=== PATIENT | male | born 1960 | race Caucasian/White ===

== ENCOUNTER 2021-03-13 12:00 | Emergency (ER) | payer BC, SELFPAY ==
--- NOTE | ~2021-03-13 | CT_ITS ---
EXAMINATION: CT abdomen pelvis w con EXAM DATE: 03/13/2021 13:55 INDICATION: Epigastric pain. Nausea, vomiting. Chills. TECHNIQUE: Spiral CT of the abdomen and pelvis was performed following intravenous injection of 100 m L Omnipaque 350. Axial, coronal and sagittal images of the abdomen and pelvis were reviewed. The do se-length product (DLP) for this examination was 486.55 mGy-cm. The exposure was tailored according to patient size (auto mA exposure control), and iterative reconstruction (ASIR) was used as additiona l dose reduction technique. There is no prior study for comparison. FINDINGS: The liver, spleen, adrenal glands and pancreas are unremarkable. Gallbladder is unremarkab le. No biliary obstruction. Portal and splenic veins are patent. Kidneys enhance symmetrically. T here is no hydronephrosis. The prostate is unremarkable. The bladder is unremarkable. There is no retroperitoneal or pelvic lymphadenopathy. Small left inguinal fat-containing hernia. The appendix is normal. There is mild scattered colonic diverticulosis. There is no adjacent inflamm atory change to suggest diverticulitis. The stomach and small bowel are unremarkable. There is expec annmarie amount of colonic stool. No free intraperitoneal gas. The heart is normal in size. There are no pericardial or pleural effusions. Right lower lobe calcified granuloma. There are no osteoblast ic or osteolytic lesions identified. Advanced lower lumbar facet arthropathy. IMPRESSION: 1. No acute intra-abdominal findings. Reviewed, dictated and finalized at location B. [employer]
[2021-03-13 12:07] VITALS: BP 146/111; PULSE 70; RESP 16; TEMP 36.3; O2SAT 100
--- NOTE | 2021-03-13 12:08 | ECG_ITS ---
Measurements Intervals [place] Rate: 63 P: 57 OK: 156 QRS: 35 QRSD: 113 T: 66 QT: 406 QTc: 419 Interpretive Statements SINUS RHYTHM INTRAVENTRICULAR CONDUCTION DELAY DELAYED PRECORDIAL R/S TRANSITION BASELINE ARTIFACT- I, II, III, V4-V6 BORDERLINE ECG Electronically Signed On 03-13-2021 12:16:01 DIRECTOR OF [employer] by Maulik Frost D.O.
[2021-03-13 12:27] VITALS: BP 182/98; PULSE 76; RESP 26; O2SAT 100
[2021-03-13 12:36] LABS: Basophils Percent Auto 0.4 % (0.2-1.2); Eosinophils Percent Auto 0.2 % (0-4.4); Hematocrit 48.9 % (42.0-52.0); Hemoglobin 16.8 g/dL (14.0-18.0); Immature Granulocyte Absolute 0.04 K/mm3 (0.00-0.031); Immature Granulocyte Percent A 0.4 % (0-0.5); Lymphocytes Absolute Auto 2.44 K/mm3 (0.9-3.2); Mean Corpuscular HGB Conc 34.4 g/dl (32-36); Mean Corpuscular Hemoglobin 30.9 pg (26-34); Mean Corpuscular Volume 89.9 fl (80-100); Mean Platelet Volume 9.8 fl (7.4-10.4); Monocytes Absolute Auto 0.7 K/mm3 (0.1-0.6); Monocytes Percent Auto 7.9 % (2.6-8.5); Neutrophils Absolute Auto 6.1 K/mm3 (1.3-6.7); Neutrophils Percent Auto 65.1 % (45.5-73.1); Platelet Count Result 326 k/mm3 (150-375); Red Blood Count 5.44 M/mm3 (4.6-6.20); Red Cell Distribution Width 13.5 % (11.5-14.5); White Blood Count 9.4 K/mm3 (4.5-10.0)
[2021-03-13 12:46] LABS: Alanine Aminotransferase 18 U/L (4-50); Albumin Level 4.8 g/dL (3.5-5.1); Alkaline Phosphatase 66 U/L (38-126); Anion Gap 13 mmol/L (8-16); Aspartate Amino Transferase 24 U/L (17-59); Bilirubin,Total 2.7 mg/dL (0.2-1.3); Blood Urea Nitrogen 9 mg/dL (9-20); Calcium 9.4 mg/dL (8.4-10.2); Carbon Dioxide 24 mmol/L (22-30); Chloride 101 mmol/L (98-107); Estimated Glomerular Filt Rate > 60; Glucose 173 mg/dL (65-110); Lipase 137 U/L (23-300); Potassium 3.8 mmol/L (3.4-5.0); Sodium 138 mmol/L (137-145)
--- NOTE | 2021-03-13 13:38 | ED.ABDPAIN ---
HPI - Abdominal Pain General Chief Complaint: Abdominal Pain Stated Complaint: abd pain, nausea Time Seen by Provider: 03/13/21 13:10 Source: patient Mode of arrival: ambulatory Limitations: no limitations History of Present Illness HPI narrative: 60-year-old male with a history of hypertension and CHF presents to the ED with epigastric abdominal pain, nausea, and vomiting. He states symptoms began upon waking this AM. He initially experienced nonbloody emesis however has primarily been dry heaving since that time. He points to the lower chest region as well as the epigastrium when localizing his pain. No recent history of fever, chills, hematemesis, diarrhea, constipation, melena, hematochezia, dysuria, or hematuria. No abdominal surgical history. He has not taken any medication for his symptoms. He occasionally drinks alcohol and rarely uses NSAIDs. Related Data Allergies Allergy/AdvReac Type Severity Reaction Status Date / Time No Known Allergies Allergy Mild Verified 01/20/19 06:00 Review of Systems Review of Systems: CONSTITUTIONAL: Denies fever, chills, or sweats. EYES: Denies visual changes, redness, or discharge. ENT: Denies rhinorrhea, congestion, sore throat, or otalgia. CARDIOVASCULAR: + chest pain. RESPIRATORY: Denies cough or dyspnea. GASTROINTESTINAL: Epigastric pain, nausea, vomiting GENITOURINARY: Denies dysuria or hematuria. SKIN: Denies rash or itching. MUSCULOSKELETAL: Denies back pain, joint pain, or myalgia. NEUROLOGIC: Denies headache, numbness, dizziness, or weakness. PSYCHIATRIC: Denies anxiety or depression. All systems reviewed & are unremarkable except as noted in HPI and below PMFSH Past Medical History Medical History Hypertension Surgical History Surgical History Cervical vertebral fusion Social History Social History Gender identity (if verbalized by the patient): Male Exam Narrative: GENERAL: Uncomfortable appearing; well-nourished, and in no acute distress. HEAD: Normocephalic, atraumatic. EYES: PERRLA and EOMI. ENT: Nares clear, no rhinorrhea or epistaxis. Mucous membranes moist. Oropharynx without tonsillar hypertrophy exudate or other lesions. Bilateral TMs pearly gordon nonbulging NECK: Supple. No adenopathy or masses. No carotid bruits or JVD CHEST: Clear to auscultation. No respiratory distress. No wheezes rales or rhonchi HEART: Regular rate and rhythm. No murmur heard. Normal peripheral pulses. ABDOMEN: Mild epigastric tenderness palpation; no guarding, rigidity, or rebound tenderness. Negative Macias sign. EXTREMITIES: Normal range of motion. No edema. SKIN: Warm, dry, no rash. NEURO: No focal deficits. Alert and oriented x3. PSYCH: Normal mood and affect. Course Course Emergency Course: Patient presents with epigastric abdominal pain, nausea, and vomiting. Work-up in ED is largely unremarkable. Unclear etiology. Perhaps some degree of esophagitis/gastritis. Functional abdominal pain is another consideration. Each time I entered patient's room to reevaluate him he appears to be resting comfortably however then states his pain and nausea are not improved. I do not feel there is indication for admission at this time. Patient would benefit from outpatient gastroenterology referral for possible EGD. Will Rx antiemetics and PPI. He is to return to the ED if symptoms worsen. Vital Signs Vital signs: Vital Signs Temperature 97.4 F L 03/13/21 12:07 Pulse Rate 70 03/13/21 12:07 Respiratory Rate 16 03/13/21 12:07 Blood Pressure 146/111 H 03/13/21 12:07 Pulse Oximetry 100 03/13/21 12:07 Temperature 97.4 F L 03/13/21 12:07 Pulse Rate 76 03/13/21 12:27 Respiratory Rate 26 H 03/13/21 12:27 Blood Pressure 182/98 H 03/13/21 12:27 Pulse Oximetry 100 03/13/21 12:27 [facility] -
[2021-03-13] MEDS: ONDANSETRON INJ 4 MG/2 ML VIAL IV PUSH (13:59)
[2021-03-13] MEDS: MORPHINE SULFATE (*CRX) 4 MG/ML INJ IV PUSH (14:00)
[2021-03-13 14:02] LABS: Troponin I < 0.012 ng/mL (0.000-0.034)
[2021-03-13 14:49] LABS: Add Urine Microscopic? YES; Appearance Urine Clear (Clear); Bilirubin Urine Negative (Negative); Blood Urine Negative (Negative); Color Urine Yellow (Yellow); Glucose Urine UA 1+ mg/dL (Negative); Ketones Urine 2+ mg/dL (Negative); Leukocyte Esterase Ur Negative LEU/UL (Negative); Mucus Urine Moderate /lpf; Nitrate Urine Negative (Negative); Protein Urine Negative (Negative); RBC Urine 0-2 /hpf (0-2); Squamous Epithelial Cell Urine Occasional /hpf (Few); Urobilinogen Urine Negative mg/dL (<2.0); WBC Urine 0-3 /hpf
[2021-03-13] MEDS: diphenhydrAMINE HCl INJ 50 MG/ML VIAL 25 MG IV PUSH (14:53)
[2021-03-13 14:54] LABS: Specific Grav Ur 1.044 (1.001-1.035)
[2021-03-13] MEDS: HALOPERIDOL LACTATE 5 MG/ML VIAL 2.5 MG IV PUSH (14:55)
[2021-03-13] MEDS: fentaNYL CITRATE INJ (*CRX) 100 MCG/2 ML VIAL 75 MCG IV PUSH (16:01)
[2021-03-13] MEDS: FAMOTIDINE 20 MG/2 ML VIAL IV PUSH (16:03)
[2021-03-13 16:06] VITALS: BP 156/104; PULSE 74; RESP 20; O2SAT 98
== END 2021-03-13 20:57 | disposition home or self-care (01) ==
PROVIDERS: Emergency Medicine; Physician Assistant; Emergency Provider Emergency Medicine; PCP Family Medicine
DX: R10.13 Epigastric pain (principal); R11.2 Nausea with vomiting, unspecified; I50.9 Heart failure, unspecified; I11.0 Hypertensive heart disease with heart failure; I45.9 Conduction disorder, unspecified
CPT/HCPCS: 36415; 74177; 80053; 81001; 83690; 84484; 85025; 93005; 96374; 96375; 99284; J1200; J1630; J2270; J2405; J3010; Q9967

== ENCOUNTER 2021-06-22 07:47 | Emergency (ER) | payer BC, SELFPAY ==
--- NOTE | ~2021-06-22 | CT_ITS ---
EXAMINATION: CT abdomen pelvis w con DATE: 06/22/2021 10:05 INDICATION: Epigastric abdominal pain. Nausea and vomiting. TECHNIQUE: Computed tomography (CT) of the abdomen and pelvis was performed with 100 mL Omnipaque 350 intravenous contrast. Automated exposure control and iterative reconstruction technique were employe d. The dose-length product was 318.83 mGy-cm. COMPARISON: CT abdomen and pelvis 03/13/2021 FINDINGS: The visualized portions of the lung bases demonstrate mild atelectasis. No pleural effusion . The heart size is normal. There are coronary artery calcifications. There is a small pericardial ef fusion. The liver, gallbladder, spleen, pancreas, adrenal glands, and left kidney are normal. There i s a 14 mm cyst in right kidney. There is a left inguinal hernia containing fat. There is diverticulos is of the colon without evidence of diverticulitis. There are no dilated loops of bowel. There is a t ransient small bowel intussusception. The appendix is normal. There is an umbilical hernia containing fat. There are no pathologically enlarged lymph nodes. There is no free intraperitoneal fluid. There is mild thoracic spondylosis and moderate lumbar spondylosis. IMPRESSION: 1. Stable small pericardial effusion. 2. Umbilical hernia and left inguinal hernia containing fat. Reviewed, dictated and finalized at location B.
[2021-06-22 07:53] VITALS: BP 132/93; PULSE 98; RESP 20; TEMP 36.8; O2SAT 100
[2021-06-22 08:36] VITALS: BP 124/89; PULSE 83; RESP 20; O2SAT 100
[2021-06-22 08:51] LABS: Basophils Percent Auto 0.3 % (0.2-1.2); Eosinophils Percent Auto 0.1 % (0-4.4); Hematocrit 54.4 % (42.0-52.0); Hemoglobin 18.6 g/dL (14.0-18.0); Immature Granulocyte Absolute 0.09 K/mm3 (0.00-0.031); Immature Granulocyte Percent A 0.6 % (0-0.5); Lymphocytes Absolute Auto 4.23 K/mm3 (0.9-3.2); Lymphocytes Percent Auto 28.8 % (18.3-44.2); Mean Corpuscular HGB Conc 34.2 g/dl (32-36); Mean Corpuscular Hemoglobin 30.9 pg (26-34); Mean Corpuscular Volume 90.5 fl (80-100); Mean Platelet Volume 10.3 fl (7.4-10.4); Monocytes Absolute Auto 1.3 K/mm3 (0.1-0.6); Monocytes Percent Auto 9.1 % (2.6-8.5); Neutrophils Percent Auto 61.1 % (45.5-73.1); Platelet Count Result 415 k/mm3 (150-375); Red Blood Count 6.01 M/mm3 (4.6-6.20); Red Cell Distribution Width 13.6 % (11.5-14.5); White Blood Count 14.7 K/mm3 (4.5-10.0)
[2021-06-22 09:00] LABS: Alanine Aminotransferase 18 U/L (4-50); Albumin Level 4.7 g/dL (3.5-5.1); Alkaline Phosphatase 53 U/L (38-126); Anion Gap 16 mmol/L (8-16); Aspartate Amino Transferase 38 U/L (17-59); Bilirubin,Total 3.7 mg/dL (0.2-1.3); Blood Urea Nitrogen 30 mg/dL (9-20); Calcium 9.1 mg/dL (8.4-10.2); Carbon Dioxide 20 mmol/L (22-30); Chloride 94 mmol/L (98-107); Estimated CRCL calculation 66 ml/min; Estimated Glomerular Filt Rate > 60; Glucose 209 mg/dL (65-110); Lipase 220 U/L (23-300); Potassium 3.4 mmol/L (3.4-5.0); Sodium 130 mmol/L (137-145)
--- NOTE | 2021-06-22 09:43 | ED.ABDPAIN ---
HPI - Abdominal Pain General Chief Complaint: Abdominal Pain Stated Complaint: abd pain Time Seen by Provider: 06/22/21 08:36 Source: patient and RN notes reviewed Mode of arrival: ambulatory Limitations: no limitations History of Present Illness HPI narrative: 60-year-old male history of diabetes presenting to the emergency department for evaluation of 2 days of intense epigastric pain. Patient reports intense epigastric pain that does not radiate to his back. Patient denies any chest pain or shortness of breath. Patient does have associated nausea and vomiting. Patient states over the last 2 days he has had decreased p.o. intake. Patient denies any prior history of abdominal surgeries. Patient does report a prior history of gastritis for which he used to take omeprazole. Patient states he no longer takes daily omeprazole and has not had follow-up with GI. Patient does not take NSAIDs frequently, patient denies frequent alcohol consumption.. Related Data Allergies Allergy/AdvReac Type Severity Reaction Status Date / Time No Known Allergies Allergy Mild Verified 01/20/19 06:00 Review of Systems Review of Systems: CONSTITUTIONAL: Denies fever, chills, or sweats. EYES: Denies visual changes, redness, or discharge. ENT: Denies rhinorrhea, congestion, sore throat, or otalgia. CARDIOVASCULAR: Denies chest pain, palpitations, or edema. RESPIRATORY: Denies cough or dyspnea. GASTROINTESTINAL: See HPI GENITOURINARY: Denies dysuria or hematuria. SKIN: Denies rash or itching. MUSCULOSKELETAL: Denies back pain, joint pain, or myalgia. NEUROLOGIC: Denies headache, numbness, or weakness. PMFSH Past Medical History Medical History Hypertension Surgical History Surgical History Cervical vertebral fusion Social History Social History Gender identity (if verbalized by the patient): Male Exam Narrative: APPEARANCE: Well appearing, no pain, no distress, well-nourished. HEAD: normocephalic, atraumatic. EYES: PERRLA/EOMI, conjunctivae clear. NECK: Supple. No adenopathy, no masses. RESPIRATORY: Airway patent, respirations nonlabored. Clear to auscultation bilaterally, no rales, rhonchi, wheezing. CARDIOVASCULAR: Regular rate and rhythm without murmurs rubs or gallops. ABDOMINAL: Epigastric tenderness to palpation. No lower abdominal tenderness to palpation. MUSCULOSKELETAL: Moves all extremities. Strength/ROM intact, No edema, No calf tenderness. NEURO: Alert. Cranial nerves II through XII intact. Grossly intact SKIN: Warm, dry. Normal Color Course Course Emergency Course: Patient did have significant improvement with his symptoms from the GI cocktail. Patient CT was negative for any acute findings. Patient does have a mild leukocytosis at 14.7. Bilirubin is elevated at 3.7. Patient has no tenderness to palpation on reexamination. Patient was encouraged to have close follow-up with a GI physician. Patient states he has had gastritis before but never had GI follow-up. Vital Signs Vital signs: Vital Signs Temperature 98.3 F 06/22/21 07:53 Pulse Rate 98 06/22/21 07:53 Respiratory Rate 20 06/22/21 07:53 Blood Pressure 132/93 H 06/22/21 07:53 Pulse Oximetry 100 06/22/21 07:53 Temperature 98.3 F 06/22/21 07:53 Pulse Rate 85 06/22/21 12:18 Respiratory Rate 18 06/22/21 12:18 Blood Pressure 98/72 L 06/22/21 12:18 Pulse Oximetry 100 06/22/21 12:18 MDM - Abdominal Pain Differential Diagnosis Differential diagnosis: Likely abdominal pain, gastroenteritis and pancreatitis Lab Data Attestation: I reviewed the patient's lab results. Result diagrams: 06/22/21 08:36 06/22/21 08:36 Labs: Lab Results 06/22/21 06/22/21 06/22/21 Range/Units 08:36 08:36 10:12 WBC 14.7 H (4.5-10.0) K/mm3 RBC 6.01
--- NOTE | 2021-06-22 09:58 | PC.NURSE ---
Pt to US at this time.
[2021-06-22] MEDS: ONDANSETRON INJ 4 MG/2 ML VIAL IV PUSH (10:05)
[2021-06-22] MEDS: HYDROmorphone HCL INJ (*CRX) 1 MG/ML SYR IV PUSH (10:06)
[2021-06-22 10:10] VITALS: BP 111/91; PULSE 80; RESP 19; O2SAT 99
[2021-06-22] MEDS: BELLADONNA ALK/PHENOB ELIX 10 ML, MAG HYDROX/ALUMINUM HYD/SIMETH 30 ML, LIDOCAINE HCL 2... PO (10:30)
[2021-06-22 10:34] LABS: Bacteria Urine Trace /hpf; Hyaline Casts Urine 20-29 /lpf; Mucus Urine Few /lpf; Squamous Epithelial Cell Urine Occasional /hpf (Few)
[2021-06-22 10:35] LABS: Appearance Urine Slightly Cloudy (Clear); Bilirubin Urine 2+ (Negative); Blood Urine Negative (Negative); Color Urine Yellow (Yellow); Glucose Urine UA Negative (Negative); Ketones Urine 3+ mg/dL (Negative); Leukocyte Esterase Ur Negative LEU/UL (Negative); Nitrate Urine Negative (Negative); Protein Urine 1+ mg/dL (Negative); Urobilinogen Urine 0.2 mg/dL (<2.0); pH Urine 6.5 (5.0-9.0)
[2021-06-22 10:38] LABS: Add Urine Microscopic? YES
[2021-06-22] MEDS: PANTOPRAZOLE SODIUM IV 40 MG VIAL IV PUSH (11:54)
[2021-06-22 12:18] VITALS: BP 98/72; PULSE 85; RESP 18; O2SAT 100
== END 2021-06-22 12:17 | disposition home or self-care (01) ==
PROVIDERS: Emergency Provider Emergency Medicine; PCP Family Medicine
DX: R10.13 Epigastric pain (principal); I10 Essential (primary) hypertension; Z98.1 Arthrodesis status; K42.9 Umbilical hernia without obstruction or gangrene; K40.90 Unilateral inguinal hernia, without obstruction or gangrene, not specified as recurrent
CPT/HCPCS: 36415; 74177; 80053; 81001; 83690; 85025; 87086; 96374; 96375; 99284; A9270; C9113; J1170; J2405; Q9967